=== PATIENT | female | born 1985 | race Caucasian/White ===

== ENCOUNTER → 2017-09-17 | Outpatient (CLI) | payer OTHER ==
[~2017-09-17] MED LIST: AMIT50 PO; AMOX500 PO; ASPIRIN; CIPR500 PO; CLON1 PO; CYCL10 PO; DOXY100 PO; HYDACE10B PO; HYDACE5; HYDACE5 PO; HYDMOR2 PO; IBUP200; IBUP800 PO; IBUPROFEN; METERG.2 PO; METR500 PO; MULVITMINE; MULVITMINE PO; NYQUIL; O; OXYACE5T PO; PENVK500 PO; PHENA200 PO; PROACE100 PO; PROM25 PO; RXHYDACE PO; RXHYDMOR2 PO; RXOXYACE PO; RXPROACE PO; RXSULTRIDS PO; SERT100 PO; SULTRIDS PO; TRAM50 PO; Ultram50 MG PO
[2017-09-17 17:15] LABS: Appearance, Urine Turbid (Clear); Blood, Urine Neg (Neg); Color, Urine Amber (P-Yellow); Glucose Qualitative, Urine Neg (Neg); Ketones, Urine 2+ (Neg); Leukocyte Esterase, Urine 2+ (Neg); Nitrite, Urine Pos (Neg); Protein, Urine 2+ (Neg); Specific Gravity, Urine 1.025 (1.003-1.022); Urobilinogen, Urine 1+ (Normal)
[2017-09-17 17:27] LABS: U Amphetamine Screen DETECTED; U Barbituate Screen Not Detected; U Benzodiazapine Screen Not Detected; U Buprenorphine Screen Not Detected; U Cannabinoids Screen DETECTED; U Cocaine Screen Not Detected; U Methadone Screen Not Detected; U Methamphetamine Screen DETECTED; U Opiates Screen Not Detected; U Oxycodone Screen Not Detected; U Phencyclidine Screen Not Detected; U Propoxyphene Screen Not Detected
[2017-09-17 17:28] LABS: Bilirubin, Urine 1+ (Neg)
[2017-09-17 17:29] LABS: Amorphous Heavy (0-Heavy); Bacteria Few /hpf; Red Blood Cells, Urine 0-2 /hpf (0-2); Squamous Epithelial Cells Few /hpf (Few); White Blood Cells, Urine 0-2 /hpf (0-5)
== END ==
LOC: LAB 16:45 → LAB SHORT 16:45
PROVIDERS: Family Medicine
DX: Z13.89 Encounter for screening for other disorder (principal); R82.99 Other abnormal findings in urine
CPT/HCPCS: 81001; 87077; 87086; 87186

== ENCOUNTER → 2018-08-13 | Outpatient (CLI) | payer OTHER ==
[~2018-08-13] MED LIST changes: +HYDPAM50 PO; +HYDR1TAB94 PO; +SUBOXONE 8 MG-1 EACH SL
== END ==
LOC: LAB SRC 10:00 → LAB 10:00 → LAB SHORT 10:00
DX: R30.0 Dysuria (principal); R10.9 Unspecified abdominal pain
CPT/HCPCS: 87086

== ENCOUNTER → 2018-08-17 | Outpatient (CLI) | payer OTHER | END | disposition home or self-care (01) | LOC: LAB SHORT 18:26 → LAB 18:26 | DX: R10.9 Unspecified abdominal pain (principal); R30.0 Dysuria | CPT/HCPCS: 87077; 87086; 87186 ==

== ENCOUNTER → 2018-08-27 | Outpatient (CLI) | payer OTHER | END | disposition home or self-care (01) | LOC: LAB SRC 12:30 → LAB SHORT 12:30 | DX: R10.9 Unspecified abdominal pain (principal); R30.0 Dysuria | CPT/HCPCS: 87077; 87086; 87186 ==

== ENCOUNTER → 2018-09-23 | Outpatient (CLI) | payer OTHER | END | disposition home or self-care (01) | LOC: LAB SRC 10:32 → LAB SHORT 10:32 | DX: R30.0 Dysuria (principal) | CPT/HCPCS: 87086 ==

== ENCOUNTER 2018-09-28 19:06 | Emergency (ER) | payer OTHER ==
[~2018-09-28] VITALS: Ht 165.1 cm; Wt 73.9 kg
[~2018-09-28 19:06] MED LIST changes: -HYDPAM50 PO; -SUBOXONE 8 MG-1 EACH SL
[2018-09-28] MEDS ORDERED: HYDPAM50 PO (19:22)
[2018-09-28] MEDS ORDERED: SUBOXONE 8 MG-1 EACH SL (19:22)
[2018-09-28] MEDS ORDERED: SERT100 PO (19:23)
[2018-09-28] MEDS ORDERED: AMIT50 PO (19:23)
== END 2018-09-28 22:28 | disposition home or self-care (01) ==
LOC: ER 19:06
DX: O9A.211 Injury, poisoning and certain other consequences of external causes complicating pregnancy, first trimester (principal); S90.02XA Contusion of left ankle, initial encounter; Z3A.01 Less than 8 weeks gestation of pregnancy; V43.52XA Car driver injured in collision with other type car in traffic accident, initial encounter; Z88.8 Allergy status to other drugs, medicaments and biological substances; Z79.899 Other long term (current) drug therapy; O99.331 Smoking (tobacco) complicating pregnancy, first trimester; F17.200 Nicotine dependence, unspecified, uncomplicated
CPT/HCPCS: 29515; 36415; 73610; 84703; 99284-25

== ENCOUNTER → 2018-11-25 | Outpatient (CLI) | payer OTHER ==
[~2018-11-25] MED LIST changes: +HYDPAM50 PO; +SUBOXONE 8 MG-1 EACH SL
[2018-11-27 18:06] LABS: CHLAMYDIA TRACHOMATIS, NAA Negative (Negative); HPV 16 Negative (Negative); HPV 18 Negative (Negative); HPV OTHER HR TYPES Positive (Negative); NEISSERIA GONORRHOEAE, NAA Negative (Negative)
== END | disposition home or self-care (01) ==
LOC: LAB 17:05 → LAB SHORT 17:05
PROVIDERS: Obstetrics & Gynecology
DX: Z36.89 Encounter for other specified antenatal screening (principal)
CPT/HCPCS: 87491; 87591; 87624; 87625; G0123

== ENCOUNTER → 2019-01-22 | Outpatient (CLI) | payer OTHER ==
[~2019-01-22] MED LIST changes: +Augmentin 875-1 EACH PO
== END | disposition home or self-care (01) ==
LOC: LAB 13:59 → LAB SHORT 13:59
DX: N87.9 Dysplasia of cervix uteri, unspecified (principal)
CPT/HCPCS: 88305; 88342

== ENCOUNTER 2019-03-08 17:55 | Emergency (ER) | payer OTHER ==
[~2019-03-08] VITALS: Ht 165.1 cm; Wt 71.7 kg
[~2019-03-08 17:55] MED LIST changes: -Augmentin 875-1 EACH PO
[2019-03-08 18:46] LABS: Influenza A Negative (NEGATIVE); Influenza B Negative (NEGATIVE)
[2019-03-08] MEDS ORDERED: Augmentin 875-1 EACH PO (20:13)
== END 2019-03-08 20:51 | disposition home or self-care (01) ==
LOC: ER 17:55
PROVIDERS: Physician Assistant
DX: O99.512 Diseases of the respiratory system complicating pregnancy, second trimester (principal); J40 Bronchitis, not specified as acute or chronic; O99.332 Smoking (tobacco) complicating pregnancy, second trimester; F17.200 Nicotine dependence, unspecified, uncomplicated; Z88.8 Allergy status to other drugs, medicaments and biological substances; Z79.899 Other long term (current) drug therapy
CPT/HCPCS: 87804; 99283

== ENCOUNTER → 2019-05-13 | Outpatient (CLI) | payer OTHER ==
[~2019-05-13] MED LIST changes: +ALBU90OI INH; +Augmentin 875-1 EACH PO; +DIPH50 PO; +PRENATAL TABLE1 EAC2 PO
== END | disposition home or self-care (01) ==
LOC: LAB SHORT 09:20 → LAB 09:20
DX: Z34.83 Encounter for supervision of other normal pregnancy, third trimester (principal)
CPT/HCPCS: 87081; 87653

== ENCOUNTER 2019-06-03 06:12 | Inpatient (IN) | payer OTHER ==
[~2019-06-03] VITALS: Ht 165.1 cm; Wt 76.8 kg
[2019-06-03 06:33] LABS: BASOPHILS ABSOLUTE AUTO 0.02 K/mm3 (0.00-0.23); BASOPHILS PERCENT AUTO 0 % (0-2); EOSINOPHILS ABSOLUTE AUTO 0.06 K/mm3 (0.00-0.68); EOSINOPHILS PERCENT AUTO 1 % (0-6); IMMATURE GRAN ABSOLUTE AUTO 0.04 K/mm3 (0.00-0.10); IMMATURE GRAN PERCENT AUTO 0 % (0-1); LYMPHOCYTES ABSOLUTE AUTO 2.28 K/mm3 (0.84-5.20); LYMPHOCYTES PERCENT AUTO 24 % (21-46); MONOCYTES ABSOLUTE AUTO 0.72 K/mm3 (0.16-1.47); MONOCYTES PERCENT AUTO 8 % (4-13); Mean Corpuscular HGB 30.5 pg (26.0-34.0); Mean Corpuscular HGB Conc 32.4 g/dL (31.5-36.5); Mean Corpuscular Volume 94 fL (80-100); Mean Platelet Volume 10.9 fL (9.1-12.4); NEUTROPHILS ABSOLUTE AUTO 6.29 K/mm3 (1.96-9.15); NEUTROPHILS PERCENT AUTO 67 % (41-73); Platelet Count 284 K/mm3 (150-400); RDW Coefficient Variation 14.6 % (11.7-14.2); RDW Standard Deviation 49.4 fL (35.1-46.3); Red Blood Cell Count 3.93 M/mm3 (3.80-5.20); White Blood Cell Count 9.41 K/mm3 (4.00-11.30)
--- NOTE | 2019-06-03 17:49 | NUR ---
UPON ADMISSION, PT WAS SCREENED POSITIVE FOR COVID-19. PT STATED SHE HAD A COUGH AND WAS SHORT OF BREATH. A RED BAND WAS PLACED ON HER RIGHT WRIST AND MASK PLACED ON HER FACE. UPON FURTHER ASSESSMENT AND QUESTIONING, PT HAS HAD BRONCHITIS FOR OVER A MONTH WITH A PRODUCTIVE COUGH, HAS ASTHMA AND SHE IS A SMOKER WHICH SHE IS CONSTANTLY SHORT OF BREATH. NO NEW COUGH AND NO NEW SHORTNESS OF BREATH. PT HAS NOT HAD A FEVER. THIS WAS ADDRESSED [facility] DR SHIN AT 1730 AT THE NURSES STATION. VERBAL ORDER TO CUT OFF RED BAND AND CLEAR PT FOR COVID-19 DUE TO NOT HAVING ACCURATE SIGNS.
[2019-06-04 04:59] LABS: Hematocrit 36.1 % (33.0-51.0); Hemoglobin 11.8 g/dL (11.5-16.0); Mean Corpuscular HGB 31.2 pg (26.0-34.0); Mean Corpuscular HGB Conc 32.7 g/dL (31.5-36.5); Mean Corpuscular Volume 96 fL (80-100); Mean Platelet Volume 10.5 fL (9.1-12.4); Platelet Count 265 K/mm3 (150-400); RDW Coefficient Variation 14.8 % (11.7-14.2); RDW Standard Deviation 50.8 fL (35.1-46.3); Red Blood Cell Count 3.78 M/mm3 (3.80-5.20); White Blood Cell Count 13.58 K/mm3 (4.00-11.30)
--- NOTE | 2019-06-04 15:54 | NUR ---
CALLED 24 HOUR [facility] HOTLINE FOR UPDATE. OPEN CASE ASSINGED TO ANGELA BLANKENSHIP. AWAITING RETURN PHONE CALL TO SRINIVASA HINES
--- NOTE | 2019-06-04 17:00 | NUR ---
SPOKE TO TANNER SOLARES AT [facility] ([facility]EN[facility]S [facility]) STATED THAT THIS CASE WAS "SCREENED OUT". MOM CLEARED TO TAKE BABY HOME WHEN D/C'D. ANGELA TO CALL AND TALK WITH LUIS ON 06/05/19. LUIS AND SHEA AWARE.
--- NOTE | 2019-06-05 10:54 | NUR ---
D/C INSTRUCTIONS DISCUSSED AND SIGNED. DISCUSSED ALL QUESTIONS AND CONCERNS. PT D/C TO BOARDER STATUS
== END 2019-06-05 10:58 | disposition home or self-care (01) | DRG 806 ==
LOC: BC 06:12
PROVIDERS: ADMIT Obstetrics & Gynecology
PROC: 10E0XZZ Delivery of Products of Conception, External Approach (ICD-10-PCS; principal; 2019-06-03)
PROC: 10907ZC Drainage of Amniotic Fluid, Therapeutic from Products of Conception, Via Natural or Artificial Opening (ICD-10-PCS; 2019-06-03)
PROC: 3E033VJ Introduction of Other Hormone into Peripheral Vein, Percutaneous Approach (ICD-10-PCS; 2019-06-03)
PROC: 3E0R3BZ Introduction of Anesthetic Agent into Spinal Canal, Percutaneous Approach (ICD-10-PCS; 2019-06-03)
DX: O99.324 Drug use complicating childbirth (principal); F11.20 Opioid dependence, uncomplicated; Z37.0 Single live birth; O98.42 Viral hepatitis complicating childbirth; B19.20 Unspecified viral hepatitis C without hepatic coma; Z3A.39 39 weeks gestation of pregnancy; O99.334 Smoking (tobacco) complicating childbirth; F17.200 Nicotine dependence, unspecified, uncomplicated; O99.89 Other specified diseases and conditions complicating pregnancy, childbirth and the puerperium; R05 Cough
CPT/HCPCS: 36415; 51702; 85025; 85027; 86850; 86900; 86901; J1885; J2001; J2210; J2590; J3010; J7120; Q0163

== ENCOUNTER 2019-06-30 07:22 | Emergency (ER) | payer OTHER ==
[~2019-06-30] VITALS: Ht 165.1 cm; Wt 63.5 kg
--- NOTE | 2019-06-30 08:48 | NUR ---
STAT LIMITED ECHO COMPLETE
--- NOTE | 2019-06-30 09:54 | NUR ---
Upon being called to ER I entered consult room and was present with patient's Ankit and his mother as Dr. Pritchard told them that patient is not doing well. We all then went to ER 26. I provided a calming presence for family there and other family members as they arrived. I helped supply water and juice to patient's mother, Erica, who is diabetic and did not take her insulin this AM. I provided comfort and prayer for the family as I gathered them around patient's body shortly after patient's ToD. Family grieved appropriately at times and also had some loud outbursts and stomping up and down the hallways and slamming hands on singh and doors. I provided grief/emotional support. I went out to parking lot to retrive home information (patient's mother, Erica requested that [facility] in [place] be contacted). I also called [facility] and spoke with the Portfolio Analyst there, at the request of Erica, to inform Mehrdad Gunn that his sister has . The facility ship painter helper assured me that he would inform Mehrdad and have him call his mother.
== END 2019-06-30 10:05 ==
LOC: ER 07:22
DX: O99.43 Diseases of the circulatory system complicating the puerperium (principal); I46.9 Cardiac arrest, cause unspecified; O99.345 Other mental disorders complicating the puerperium; F32.9 Major depressive disorder, single episode, unspecified; F41.9 Anxiety disorder, unspecified; O99.335 Smoking (tobacco) complicating the puerperium; F17.210 Nicotine dependence, cigarettes, uncomplicated; Z88.8 Allergy status to other drugs, medicaments and biological substances; Z79.899 Other long term (current) drug therapy; Z79.51 Long term (current) use of inhaled steroids
CPT/HCPCS: 36415; 92950; 92960; 93308; 93321; 96374-59; 96375-59; 96376-59; 99285-25; J0282; J2310; J3101; J3475; J7030; J7060